=== PATIENT | male | born 1990 | race Caucasian/White ===

== ENCOUNTER → 2021-10-03 | Outpatient (CLI) | payer BC, OTHER ==
[2021-10-03 09:13] VITALS: BP 142/84; PULSE 78; RESP 18; TEMP 98.3
--- NOTE | 2021-10-03 09:42 | P.CON ---
Consult Note - . Consult date: 10/03/21 Assessment/Plan:: HISTORY OF PRESENT ILLNESS: 31 yr old male as a referral from Dr Sheldon presents today with severe and chronic posterior headache pain secondary to occipital neuralgia for evaluation. Pt states he has been experiencing on and off posterior headache pain, 8 out of 10 in intensity, sharp when it is exacerbated, originating from the base of his head and extends upward on his scalp. Pain lasts a few minutes at a time. Patient is not aware of any provocative factors but states that it occurs more frequently when driving. Pain is relieved slightly with ibuprofen, chiropractic treatments which he has weekly, repositioning of his head and rest. Patient also complains of lumbar pain, 10 out of 10 in intensity occasionally, sore, achy, dull in the lower aspects of his lumbar spine. Pain is not constant waxes and wanes throughout the day. It is exacerbated with walking for 15 minutes, lifting or bending. Past Medical History / Comment(s): Denies Past Surgical History / Comment(s): TBI Social History: Hx of tobacco use. Occasional ETOH use. No illicit drug use. Family History: Non contributory All: PCN Meds: See list REVIEW OF ORGAN SYSTEMS: CONSTITUTIONAL: No fevers or chills. No recent weight los s. HEENT: No visual acuity loss, eye pain, difficulties with hearing. No nosebleeds. No difficulty swallowing. RESPIRATORY: Denies any troubles with breathing or dyspnea on exertion. CARDIOVASCULAR: Denies any chest pain, palpitations, or recent heart attacks. GASTROINTESTINAL: Denies fatty food intolerance. Has change in bowel habits and gas bloat. GENITOURINARY: Denies any blood in urine. Has increased urinary frequency. NEUROLOGICAL: + numbness and tingling along the distal extremities. No seizure disorders or headaches. MUSCULOSKELETAL: + back pain SKIN: No skin cancer. No rash. PSYCHIATRIC: Denies current depression or suicidal thoughts. ENDOCRINE: Denies current thyroid disorders. Denies any blood sugar glucose intolerance. HEME/LYMPHATIC: Denies any lumps and bumps around the neck. History of deep venous thrombosis. ALLERGY/IMMUNOLOGY: No immunoglobulin therapy. No immune deficiencies. BREAST: Denies current breast lumps, pain or nipple discharge. Physical Examinations : Constitutional : Cooperative , not in acute distress . HEENT: Neck supple. No Lymphadenopathy. Normal thyroid size . +TTP over BL O.N. Eyes no ptosis , no icterus, no photophobia . Hearing intact. Normal oropharynx. No Thrush. Respiratory : Chest clear to auscultations bilaterally. No wheezing. No rhonchi. Cardiovascular : Regular rate and rhythm , S1 / S2. No S3 . No S4. Gastrointestinal : Abdomen soft. No tenderness. Bowel sounds x 4. No organomegaly . Genitourinary : Deferred. Neurologic : Cranial nerve II to XII intact. No focal neurological deficits. Psychiatric : alert & oriented x 3. Matching mood & appropriate affect. Judgment & insight intact. Lymphatic No Lymphadenopathy. Musculoskeletal : Cervical Spine Motor strength in the deltoid and biceps: Normal right side. Normal Left side Motor strength biceps and the wrist extensors: Normal right side . Normal left side Motor strength in the triceps muscle: Normal right side. Normal left side Deep tendon reflexes: Normal at the biceps. Normal at Brachioradialis. Normal at triceps Cervical facet loading test: positive bilaterally Spurling test: positive bilaterally Neck distraction test: positive bilaterally Marry sign: positive bilaterally Lumbar spine Motor strength lower extremities ,thigh and legs 5/5 Right side , 5/5 Left side Deep tendon reflexes : Normal Knee Jerk. Normal Ankle Jerk Vertebral body tenderness over L4 Lumbar facet Loading Test: positive Right / positive Left Range of motion of the lumbar spine Flexion 30 degrees, extension 10 degrees Straight Leg Raise test: Left/ Right positive at degree Yuri test: positive right / positive left. Severe tenderness over the Sacroiliac joint on the Right / Left sides Gaenslen test: positive bilaterally Seated flexion test: positive bilaterally. Imaging: MRI of the brain reviewed. Assessment/ Plan : MRI without contrast of the Lumbar spine re: spondylosis Occipital Neuralgia Recommendation of BL O.N. injections. May need a series of treatments, up to 3 within a 6 mo period, for optimal pain relief. Risks, benefits of procedure discussed and patient verbalized understanding. Denies aspirin or anti- coagulant use. Denies medical history of diabetes. All questions answered. I have spent greater than 50 minutes on patient care today. Dr Middleton was available by phone for the evaluation of this patient. The time was used to review the medical records including relevant urine studies and Prescription history (MAPs), review of the available imaging, evaluation and examination of the patient, coordination of care with the medical staff and if applicable referring physicians, as well as creation of the medical record PQRS Measure Charge Sheet Mode of Arrival: Ambulatory - Pain Location Head Non-Pharmacological Interventions: Darkened Room Pharmacological Interventions: PRN Medication PQRS Narrative: Smoking Status Light tobacco smoker Blood Pressure 142/84 Pain Intensity [Head] 8 Scale Used Numeric (1 - 10) Hx Alcohol Use (MH) No Home Medications: Ambulatory Orders Ibuprofen 600 mg PO Q6HR PRN 01/12/14
== END ==
LOC: PNWHC3 08:09
PROVIDERS: ATTEND Specialist
DX: M54.81 Occipital neuralgia (principal); G89.29 Other chronic pain; Z87.891 Personal history of nicotine dependence; M47.816 Spondylosis without myelopathy or radiculopathy, lumbar region; Z88.0 Allergy status to penicillin
CPT/HCPCS: 99211

== ENCOUNTER 2022-01-15 17:16 | Emergency (ER) | payer BC, OTHER ==
[2022-01-15 17:35] VITALS: BP 138/89; PULSE 87; RESP 16; TEMP 98
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
[2022-01-15] MEDS ORDERED: IBUPROFEN 600 MG STARTER PACK 4 TAB BTL PO STA (19:06)
== END 2022-01-15 19:20 | disposition home or self-care (01) ==
LOC: EC 17:16
DX: S80.01XA Contusion of right knee, initial encounter (principal); F17.200 Nicotine dependence, unspecified, uncomplicated; Z88.0 Allergy status to penicillin; V49.40XA Driver injured in collision with unspecified motor vehicles in traffic accident, initial encounter
CPT/HCPCS: 99284

== ENCOUNTER → 2022-03-28 | Outpatient (CLI) | payer BC, OTHER ==
--- NOTE | 2022-03-28 20:46 | MR ---
EXAMINATION TYPE: MR lumbar spine wo con DATE OF EXAM: 03/28/2022 COMPARISON: None HISTORY: Low back pain into rt leg TECHNIQUE: Multiplanar, multisequence images of the lumbar spine were acquired without IV contrast. L1-L2: Normal disc appearance without desiccation. No herniation, protrusion or disc bulging. No ca nal stenosis is present. Foramina are patent bilaterally. L2-L3: Normal disc appearance without desiccation. No herniation, protrusion or disc bulging. No ca nal stenosis is present. Foramina are patent bilaterally. L3-L4: Normal disc appearance without desiccation. No herniation, protrusion or disc bulging. No ca nal stenosis is present. Foramina are patent bilaterally. L4-L5: Minimal posterior disc bulge causes only slight anterior mass effect on the thecal sac. No sig nificant foraminal encroachment. L5-S1: Normal disc appearance without desiccation. No herniation, protrusion or disc bulging. No ca nal stenosis is present. Foramina are patent bilaterally. Lumbar segments are intact. No paraspinal masses are identified. Conus medullaris has a normal appe arance. Lumbar vertebral bodies show preserved height, alignment, there is no significant spinal sten osis. Minimal endplate discogenic marrow signal change present anteriorly at L4 and L5, mild spondylo sis. Disc spaces are maintained. Probable hemangioma present at the T12 vertebral body to the left of midline. IMPRESSION: No significant disc herniation. Mild degenerative disc disease.
== END | disposition home or self-care (01) ==
LOC: RADMRIMAIN 18:20
PROVIDERS: ATTEND Physician Assistant Medical
DX: M51.36 Other intervertebral disc degeneration, lumbar region (principal)
CPT/HCPCS: 72148

== ENCOUNTER 2023-12-15 17:02 | Emergency (ER) | payer BC ==
--- NOTE | 2023-12-15 17:27 | ED ---
Chest Pain HPI - General Chief Complaint: Chest Pain Stated Complaint: chest pain,cough Time Seen by Provider: 12/15/23 17:09 Source: patient, RN notes reviewed Mode of arrival: ambulatory Limitations: no limitations - History of Present Illness Initial Comments: This is a 33-year-old male who presents to the emergency department for chest pain, coughing, and shortness of breath. States that symptoms started several days ago. Denies any fevers associated with this. Yesterday he started to become short of breath and states that even small activities are causing him to feel very fatigued very fast. Describes the chest pain as more of a burning sensation similar to acid reflux. He did vomit once when he came to the emergency department. States that this is the first time that this has happened. Believes that it may have been triggered by the coughing, but states that he feels better after vomiting. He is not currently feeling nauseous. Denies any abdominal pain. He was around some sick coworkers, but states that they recovered very quickly, whereas he seems to be getting worse. He did go to urgent care yesterday where he was given a shot of steroids. - Related Data Home Medications Medication Instructions Recorded Confirmed Bismuth Subsalicylate 524 mg PO QID PRN 12/15/23 12/15/23 [Pepto-Bismol] Cyclobenzaprine [Flexeril] 10 mg PO DAILY PRN 12/15/23 12/15/23 D-Methorphan/PE/Acetaminophen 2 cap PO Q6H PRN 12/15/23 12/15/23 [Vicks Dayquil Liquicaps] Dm/Acetaminophen/Doxylamine [Vicks 2 cap PO Q6H PRN 12/15/23 12/15/23 Nyquil Liquicaps] Ibuprofen [Motrin Ib] 800 - 1,000 mg PO Q8H PRN 12/15/23 12/15/23 Omeprazole 20 mg PO DAILY 12/15/23 12/15/23 Sertraline [Zoloft] 100 mg PO DAILY 12/15/23 12/15/23 Previous Rx's Medication Instructions Recorded Albuterol Sulfate [Albuterol 1 - 2 puff PO Q4-6H PRN #8.5 gm 12/15/23 Sulfate Hfa] Benzonatate [Tessalon Perle] 200 mg PO TID PRN #30 capsule 12/15/23 Celecoxib 200 mg PO BID PRN #30 cap 12/15/23 Ondansetron Odt [Zofran Odt] 4 mg PO Q8HR PRN #20 tab 12/15/23 Allergies Allergy/AdvReac Type Severity Reaction Status Date / Time Penicillins Allergy Unknown Verified 12/15/23 18:06 Childhood Review of Systems ROS Statement: Those systems with pertinent positive or pertinent negative responses have been documented in the HPI. ROS Other: All systems not noted in ROS Statement are negative. Past Medical History Additional Past Medical History / Comment(s): head injury-TBI History of Any Multi-Drug Resistant Organisms: None Reported Additional Past Surgical History / Comment(s): head injury leptomeningeal cyst left side age 6 yrs Past Anesthesia/Blood Transfusion Reactions: No Reported Reaction Past Psychological History: No Psychological Hx Reported Smoking Status: Current every day smoker Past Alcohol Use History: Occasional Past Drug Use History: None Reported - Past Family History Mother Additional Family Medical History / Comment(s): heart murmur General Exam Limitations: no limitations General appearance: alert, in no apparent distress Head exam: Present: atraumatic, normocephalic, normal inspection Respiratory exam: Present: normal lung sounds bilaterally. Absent: respiratory distress, wheezes, rales, rhonchi, stridor Cardiovascular Exam: Present: regular rate, normal rhythm, normal heart sounds. Absent: systolic murmur, diastolic murmur, rubs, gallop, clicks GI/Abdominal exam: Present: soft, normal bowel sounds. Absent: distended, tenderness, guarding, rebound, rigid Neurological exam: Present: alert, oriented X3, CN II-XII intact Psychiatric exam: Present: normal affect, normal mood Skin exam: Present: warm, dry, intact, normal color. Absent: rash Course Vital Signs 12/15/23 12/15/23 17:04 20:21 Temperature 97.9 F 98.9 F Pulse Rate 94 92 Respiratory 20 16 Rate Blood Pressure 131/75 133/72 O2 Sat by Pulse 94 L 95 Oximetry Chest Pain MDM - MDM This is a 33 year old male who presents to the emergency department for chest pain and shortness of breath. Was pt. sent in by a medical professional or institution? @ -No Did you speak to anyone other than the patient for history? @ -No Did you review nursing and triage notes? @ -Yes, and I agree, it is accurate with regards to the patient's symptoms. Were old charts reviewed? @ -No Differential Diagnosis? @ -Differential Chest Pain: Stable Angina, Unstable Angina, STEMI, NSTEMI Aortic Dissection, Pneumothorax, Musculoskeletal, Esophageal Spasm GERD, Cholecystitis, Pancreatitis, Zoster, this is not meant to be an all-inclusive list. EKG interpreted by me (3pts min.)? @ -EKG interpreted by me demonstrating the following: Sinus rhythm. Ventricular rate 93 bpm, PA interval 145 ms, QRS duration 83 ms, QTc 374 ms. X-rays interpreted by me (1pt min.)? @ -Chest x-ray obtained. My interpretation identifies peribronchial cuffing. CT interpreted by me (1pt min.)? @ -None U/S interpreted by me (1pt. min.)? @ -Not obtained What testing was considered but not performed? (CT, X-rays, U/S, labs)? Why? @ -None What meds were considered but not given? Why? @ -None Did you discuss the management of the patient with other professionals? @ -No Did you reconcile home meds? @ -No Was smoking cessation discussed for >3mins.? @ -I discussed smoking cessation for greater than 3 minutes. The risk of smoking were discussed with the patient including but not limited to risks of cancer, stroke, coronary artery disease and COPD. Also discussed with patient were multiple methods of quitting smoking. Lastly we discussed the financial cost of smoking. Was critical care preformed (if so, how long)? @ -No Were there social determinants of health that impacted care today? How? (Homelessness, low income, unemployed, alcoholism, drug addiction, transportation, low edu. Level, literacy, decrease access to med. care, snf, rehab)? @ -No Was there de-escalation of care discussed even if they declined? (Discuss DNR or withdrawal of care, Hospice)? @ -No What co-morbidities impacted this encounter? (DM, HTN, Smoking, COPD, CAD, Cancer, CVA, Hep., AIDS, mental health diagnosis, sleep apnea, morbid obesity)? @ -Smoking Was patient admitted / discharged? @ -Discharged. Lab work unremarkable including a negative troponin and negative D-dimer. Lab work was otherwise unremarkable. Patient positive for influenza A. Chest x-ray demonstrates mild central peribronchial cuffing that could reflect bronchitis or asthma without any other acute process. Patient is out of the timeframe for Tamiflu. Discussed that at this point treatment is aimed at managing his symptoms. Celebrex prescribed for the headaches and bodyaches, which I advised should be easier on his stomach. Zofran prescribed for nausea and vomiting. He was also given a prescription for Tessalon Perles and an albuterol inhaler. Advised [id number] treatment for the heartburn. We also discussed getting plenty of rest and drinking lots of fluids. Patient discharged home in stable condition. Undiagnosed new problem with uncertain prognosis? @ -None Drug Therapy requiring intensive monitoring for toxicity (Heparin, Nitro, Insulin, Cardizem)? @ -None Were any procedures done? @ -None Diagnosis/symptom? @ -Influenza A, heartburn Acute, or Chronic, or Acute on Chronic? @ -Acute Uncomplicated (without systemic symptoms) or Complicated (systemic symptoms)? @ -Uncomplicated Side effects of treatment? @ -None Exacerbation, Progression, or Severe Exacerbation] @ -Not applicable Poses a threat to life or bodily function? @ -No Return precautions reviewed in depth, the patient is instructed to return to the emergency department with any new, worsening, or concerning symptoms. Patient verbalized understanding. This case was discussed in detail with the attending ED physician, Dr. Reyes. Presentation, findings, and treatment plan discussed in detail as well. Disposition Clinical Impression: Nicotine dependence, Influenza A, Heartburn Disposition: HOME SELF-CARE Instructions (If sedation given, give patient instructions): Influenza (ED) Additional Instructions: Return to the emergency department with any new, worsening, or concerning symptoms. Take the Celebrex twice daily with Tylenol as needed for pain relief. You can take the Tessalon Perles up to every 8 hours for coughing and the Zofran up to every 8 hours as needed for nausea and vomiting. Use the albuterol inhaler every 4-6 hours as needed for shortness of breath. You can take roun-mza-cjuptls Pepcid, Tums, or Maalox to help with any additional heartburn. Make sure you get plenty of rest and drink plenty of fluids. Follow up with your primary care provider in 1-2 days. Prescriptions: Albuterol Sulfate [Albuterol Sulfate Hfa] 1 - 2 puff PO Q4-6H PRN #8.5 gm PRN Reason: Shortness Of Breath Celecoxib 200 mg PO BID PRN #30 cap PRN Reason: Pain Benzonatate [Tessalon Perle] 200 mg PO TID PRN #30 capsule PRN Reason: Cough Ondansetron Odt [Zofran Odt] 4 mg PO Q8HR PRN #20 tab PRN Reason: Nausea And Vomiting Is patient prescribed a controlled substance at d/c from ED?: No Referrals: Julissa Yancey MD [Primary Care Provider] - 1-2 days
[2023-12-15] MEDS: PANTOPRAZOLE 40 MG/10 ML VIAL IVP STA (17:48)
[2023-12-15] MEDS: FAMOTIDINE 20 MG/2 ML VIAL IV STA (17:49)
[2023-12-15] MEDS: SODIUM CHLORIDE 0.9% 1,000 ML IV STA (17:49)
[2023-12-15] MEDS: ONDANSETRON 4 MG/2 ML VIAL IVP STA (17:49)
[2023-12-15 18:02] LABS: Basophils # (A) 0.1 k/uL (0-0.2); Basophils % (A) 1 %; Eosinophils # (A) 0.2 k/uL (0-0.7); Eosinophils % (A) 3 %; HCT 44.9 % (39.0-53.0); HGB 15.6 gm/dL (13.0-17.5); Lymphocytes # (A) 0.7 k/uL (1.0-4.8); Lymphocytes % (A) 12 %; MCH 30.1 pg (25.0-35.0); MCHC 34.7 g/dL (31.0-37.0); MCV 86.9 fL (80.0-100.0); Monocytes # (A) 0.5 k/uL (0-1.0); Monocytes % (A) 9 %; Neutrophils # (A) 4.2 k/uL (1.3-7.7); Neutrophils % (A) 74 %; Platelet Count 196 k/uL (150-450); RBC 5.17 m/uL (4.30-5.90); WBC 5.7 k/uL (3.8-10.6)
[2023-12-15 18:18] LABS: ALT 46 U/L (4-49); AST 37 U/L (17-59); African American GFR (CKD) >90 (>60 ml/min/1.73 sqM); Albumin 4.5 g/dL (3.5-5.0); Alkaline Phosphatase 63 U/L (38-126); Anion Gap 6 mmol/L; Blood Urea Nitrogen 17 mg/dL (9-20); Calcium 9.5 mg/dL (8.4-10.2); Carbon Dioxide 25 mmol/L (22-30); Chloride 107 mmol/L (98-107); Glucose 84 mg/dL (74-99); Magnesium 1.9 mg/dL (1.6-2.3); Non-African American GFR(CKD) >90 (>60 ml/min/1.73 sqM); Sodium 138 mmol/L (137-145); Total Bilirubin 0.6 mg/dL (0.2-1.3); Total Protein 7.1 g/dL (6.3-8.2)
--- NOTE | 2023-12-15 18:34 | XR ---
EXAMINATION TYPE: XR chest 2V DATE OF EXAM: 12/15/2023 COMPARISON: None HISTORY: 33-year-old male with chest pain TECHNIQUE: PA and lateral views FINDINGS: Heart normal size. Aorta and pulmonary vascularity within normal limits. Mild peribronchial cuffing c entrally without consolidation or pleural effusion. IMPRESSION: Some mild central peribronchial cuffing could reflect bronchitis or asthma. Otherwise, no acute proce ss seen.
[2023-12-15 18:37] LABS: INR 0.9 (<1.2); Partial Thromboplastin Time 26.5 sec (22.0-30.0); Prothrombin Time 10.3 sec (10.0-12.5)
[2023-12-15] MEDS: BENZONATATE 100 MG CAP PO STA (19:43)
[2023-12-15] MEDS: KETOROLAC 15 MG/ML 1 ML VIAL IVP STA (19:43)
[2023-12-15] MEDS: METOCLOPRAMIDE 5 MG/ML 2 ML VIAL IVP STA (19:45)
[2023-12-15] MEDS: MAG HYDROX/AL HYDROX/SIMETH 30 ML, HYOSCYAMINE ELIXIR 10 ML, LIDOCAINE VISCOUS 2% 10 ML PO STA (19:46)
[2023-12-15 20:22] VITALS: BP 133/72; PULSE 92; RESP 16; TEMP 98.9
== END 2023-12-15 20:31 | disposition home or self-care (01) ==
LOC: EC 17:02
DX: F17.200 Nicotine dependence, unspecified, uncomplicated (principal); J10.1 Influenza due to other identified influenza virus with other respiratory manifestations; R12 Heartburn; Z88.0 Allergy status to penicillin
CPT/HCPCS: 36415; 85379; 80053; 83735; 84484; 85025; 85610; 85730; 87636; 71046; 99285; 96374; 96375 ×4; 96361; 99406; J2765; J2405; J3490; J1885; J2470